=== PATIENT | male | born 1995 | race Caucasian/White ===

== ENCOUNTER 2024-03-03 14:12 | Emergency (ER) | payer MEDICAID ==
[~2024-03-03] VITALS: Ht 172.7 cm; Wt 68.0 kg
[2024-03-03 14:19] VITALS: O2SAT 99
[2024-03-03] MEDS: TETRACAINE 0.5% OPHTH DROPS 4ML LEFTEYE ONE (17:00)
[2024-03-03] MEDS: FLUORESCEIN SODIUM 1MG/STRIP LEFTEYE ONE (17:00)
[2024-03-03] MEDS: BALANCED SALT IRRIG SOLN 15ML IR ONE (17:00)
[2024-03-03] MEDS: ACETAMINOPHEN 325MG TABLET PO STA (17:16)
[2024-03-03] MEDS ORDERED: NAPR-681 PO (20:20)
[2024-03-03] MEDS ORDERED: CIPR2.5D17 LEFTEYE (20:20)
[2024-03-03 21:05] VITALS: BP 144/93; PULSE 80; RESP 18; TEMP 36.78072; O2SAT 99
== END 2024-03-03 21:47 | disposition home or self-care (01) ==
LOC: ER 14:18
DX: T15.02XA Foreign body in cornea, left eye, initial encounter (principal); X58.XXXA Exposure to other specified factors, initial encounter; Y93.89 Activity, other specified; Y92.89 Other specified places as the place of occurrence of the external cause; Y99.8 Other external cause status
CPT/HCPCS: 65220; 99283; 99284